=== PATIENT | female | born 1995 | race Two or more races ===

== ENCOUNTER 2017-02-26 06:44 | Emergency (ER) | payer SELFPAY ==
[~2017-02-26] VITALS: Ht 162.6 cm; Wt 99.8 kg
[~2017-02-26 06:44] MED LIST: HYDR-971 PO
[2017-02-26] MEDS ORDERED: ONDANSETRON ODT 4 MG TAB.RAPDIS. PO ONE (07:15)
--- NOTE | 2017-02-26 07:21 | PHYS DOC ---
Past Medical History Past Medical History: No Pertinent History Past Surgical History: No Surgical History Alcohol Use: Heavy Drug Use: Marijuana Adult General Chief Complaint Chief Complaint: PLEURISY HPI HPI This is a 21-year-old female who said to 3 days of what she states possibly a panic attack related symptoms. She does not claim she has any history of panic attacks. She states she's had some mild chest discomfort, palpitations, and shortness of breath for the last 3 days with multiple episodes of vomiting as well. Patient takes control but no other medications. She states her last missed her period was approximately one and a half months ago. Upon my initial evaluation, the patient is speaking in complete sentences and in no significant distress. She denies any abdominal pain. She denies any problems with urination or vaginal bleeding. Review of Systems Review of Systems Constitutional: Denies fever or chills [] Eyes: Denies change in visual acuity, redness, or eye pain [] HENT: Denies nasal congestion or sore throat [] Respiratory: Denies cough, has shortness of breath [] Cardiovascular: No additional information not addressed in HPI [] GI: Denies abdominal pain, has nausea, has vomiting, denies bloody stools or diarrhea [] : Denies dysuria or hematuria [] Musculoskeletal: Denies back pain or joint pain [] Integument: Denies rash or skin lesions [] Neurologic: Denies headache, focal weakness or sensory changes [] Endocrine: Denies polyuria or polydipsia [] Current Medications Current Medications Current Medications Medications (Trade) Dose Ordered Sig/Silviano Start Time Stop Time Status Last Admin Dose Admin Ondansetron HCl (Zofran Odt) 4 mg 1X ONCE 02/26/17 07:15 02/26/17 07:16 DC 02/26/17 07:42 4 MG Allergies Allergies Allergies Coded Allergies Type Severity Reaction Last Updated Verified No Known Drug Allergies 06/03/16 No Physical Exam Physical Exam Constitutional: Well developed, well nourished, no acute distress, non-toxic appearance. [] HENT: Normocephalic, atraumatic, bilateral external ears normal, oropharynx moist, no oral exudates, nose normal. [] Eyes: PERRLA, EOMI, conjunctiva normal, no discharge. [] Neck: Normal range of motion, no tenderness, supple, no stridor. [] Cardiovascular:Heart rate tachycardic with regular rhythm, no murmur [] Lungs & Thorax: Bilateral breath sounds clear to auscultation [] Abdomen: Bowel sounds normal, soft, no tenderness, no masses, no pulsatile masses. [] Skin: Warm, dry, no erythema, no rash. [] Back: No tenderness, no CVA tenderness. [] Extremities: No tenderness, no cyanosis, no clubbing, ROM intact, no edema. [] Neurologic: Alert and oriented X 3, normal motor function, normal sensory function, no focal deficits noted. [] Psychologic: Affect normal, judgement normal, mood normal. [] Current Patient Data Vital Signs Vital Signs Date Time Temp Pulse Resp B/P Pulse Ox O2 Delivery O2 Flow Rate FiO2 02/26/17 07:19 98.3 88 14 124/60 99 Room Air 98.3 Lab Values Laboratory Tests Test 02/26/17 06:33 02/26/17 07:27 POC Urine HCG, Qualitative Hcg negative (Negative) White Blood Count 12.8x10^3/uL (4.0-11.0) H Red Blood Count 5.00x10^6/uL (3.50-5.40) Hemoglobin 14.0g/dL (12.0-15.5) Hematocrit 42.1% (36.0-47.0) Mean Corpuscular Volume 84fL (79-100) Mean Corpuscular Hemoglobin 28pg (25-35) Mean Corpuscular Hemoglobin Concent 33g/dL (31-37) Red Cell Distribution Width 13.6% (11.5-14.5) Platelet Count 383x10^3/uL (140-400) Neutrophils (%) (Auto) 72% (31-73) Lymphocytes (%) (Auto) 20% (24-48) L Monocytes (%) (Auto) 7% (0-9) Eosinophils (%) (Auto) 1% (0-3) Basophils (%) (Auto) 1% (0-3) Neutrophils # (Auto) 9.2x10^3uL (1.8-7.7) H Lymphocytes # (Auto) 2.5x10^3/uL (1.0-4.8) Monocytes # (Auto) 0.9x10^3/uL (0.0-1.1) Eosinophils # (Auto) 0.1x10^3/uL (0.0-0.7) Basophils # (Auto) 0.1x10^3/uL (0.0-0.2) Sodium Level 139mmol/L (136-145) Potassium Level 3.8mmol/L (3.5-5.1) Chloride Level 103mmol/L (98-107) Carbon Dioxide Level 26mmol/L (21-32) Anion Gap 10 (6-14) Blood Urea Nitrogen 15mg/dL (7-20) Creatinine 0.7mg/dL (0.6-1.0) Estimated GFR (Cockcroft-Gault) 105.6 Glucose Level 121mg/dL (70-99) H Calcium Level 9.1mg/dL (8.5-10.1) Laboratory Tests 02/26/17 07:27 Laboratory Tests 02/26/17 07:27 EKG EKG EKG as interpreted by me shows a sinus rhythm with rate 89 bpm. This is a normal EKG. There are no obvious ST findings to indicate ischemia. Intervals are normal Radiology/Procedures Radiology/Procedures One view of the chest as interpreted by me did not reveal an acute cardiopulmonary process. Course & Med Decision Making Course & Med Decision Making Pertinent Labs and Imaging studies reviewed. (See chart for details) This otherwise healthy 21-year-old female having subjective symptoms of palpitations and shortness of breath for the last several days. Laboratory workup will be obtained including EKG and chest x-ray. A urine test is pending at this time. PERC negative. Her EKG is unremarkable. Her laboratory workup was fairly unremarkable. She is a slightly elevated WBC count of 12.8 which is nonspecific. Her BMP is normal. Patient was observed in the department and states she feels comfortable discharge at this time. I counseled her that she is to follow closely with her primary care doctor next several days. A low-dose of Xanax to be taken at bedtime was given that she states her symptoms seemed to be before bed. I also counseled her on decreasing her alcohol intake. Return precautions were provided and acknowledged. Dragon Disclaimer Dragon Disclaimer This electronic medical record was generated, in whole or in part, using a voice recognition dictation system. Departure Departure Impression: Primary Impression: Anxiety Additional Impression: Palpitations Disposition: HOME, SELF-CARE Admitting Physician: Other Condition: STABLE Referrals: NO PCP (PCP) Patient Instructions: Palpitations, [id number] Additional Instructions: Please follow up with your primary doctor in the next 2-3 days for your symptoms. Return to the ER if you develop any worsening of your symptoms. Take xanax only as needed at night to help you rest. Scripts Alprazolam (Xanax)0.25 Mg Tablet0.25 Mg PO QHS PRN ANXIETY / AGITATION #4 TAB Ref 0 Prov:MISSY KELSEY DO 02/26/17 Problem Qualifiers MISSY KELSEY DO Feb 26, 2017 07:21
[2017-02-26 07:39] LABS: BASO # 0.1 x10^3/uL (0.0-0.2); BASO % 1 % (0-3); EOS % 1 % (0-3); HEMATOCRIT 42.1 % (36.0-47.0); LYMPH # 2.5 x10^3/uL (1.0-4.8); LYMPH % 20 % (24-48); MEAN CORPUSCULAR HEMOGLOBIN 28 pg (25-35); MEAN CORPUSCULAR HGB CONC 33 g/dL (31-37); MEAN CORPUSCULAR VOLUME 84 fL (79-100); MONO % 7 % (0-9); NEUT % 72 % (31-73); PLATELET COUNT 383 x10^3/uL (140-400); RED CELL DISTRIBUTION WIDTH 13.6 % (11.5-14.5); WHITE BLOOD COUNT 12.8 x10^3/uL (4.0-11.0)
[2017-02-26 07:50] LABS: CALCIUM 9.1 mg/dL (8.5-10.1); CREATININE 0.7 mg/dL (0.6-1.0); GFR 105.6; POTASSIUM 3.8 mmol/L (3.5-5.1)
--- NOTE | 2017-02-26 07:58 | RAD ---
Portable chest, 02/26/2017: History: Chest pain The heart size and pulmonary vascularity are normal. The lungs are clear. There is no evidence of pleural fluid. IMPRESSION: No acute cardiopulmonary abnormality is detected.
[2017-02-26 08:00] VITALS: BP 119/68
[2017-02-26] MEDS ORDERED: ALPR0.25 PO (08:14)
--- NOTE | 2017-02-26 11:11 | EKG ---
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
== END 2017-02-26 08:16 | disposition home or self-care (01) ==
LOC: ER 06:44
DX: R00.2 Palpitations (principal); F41.9 Anxiety disorder, unspecified; R11.10 Vomiting, unspecified; F12.10 Cannabis abuse, uncomplicated
CPT/HCPCS: 36415; 71010; 80048; 84703; 85027; 93005; 99285; Q0162; 81025

== ENCOUNTER 2017-06-28 17:59 | Emergency (ER) | payer SELFPAY ==
[~2017-06-28 17:59] MED LIST changes: +ALPR0.25 PO
[2017-06-28] MEDS ORDERED: IV NORMAL SALINE 1000ML BAG 1,000 ML IV SCH (18:43)
[2017-06-28] MEDS ORDERED: ASPIRIN CHEWABLE 81 MG TABLET. PO ONE (18:45)
--- NOTE | 2017-06-28 18:47 | PHYS DOC ---
Past Medical History Past Medical History: No Pertinent History, Anxiety Additional Past Medical Histor: panic attacks Past Surgical History: No Surgical History Alcohol Use: Heavy Drug Use: Marijuana Adult General Chief Complaint Chief Complaint: CHEST PAIN HPI HPI Patient is a 22 year old female who presents with complaint of left-sided chest pain. Patient states her symptoms are approximately half an hour prior to arrival. Patient states that her symptoms came on at rest while she was driving. Patient states that the pain feels like pressure in her chest radiates to her left shoulder. Patient states that she has been having pain off and on in her left shoulder and left upper extremity for several weeks. Patient denies any known injury resulting in her symptoms. The patient currently rates her pain as 5 out of 10. Patient states that her pain was worse upon onset but has improved spontaneously. Patient denies any associated shortness of breath, fever , or nausea. Patient has not taken any medications to help with symptoms. Patient states she has history of anxiety but does not take any medications and denies any other health problems. Review of Systems Review of Systems Constitutional: Denies fever or chills [] Eyes: Denies change in visual acuity, redness, or eye pain [] HENT: Denies nasal congestion or sore throat [] Respiratory: Denies cough or shortness of breath [] Cardiovascular: Chest pain, denies edema [] GI: Denies abdominal pain, nausea, vomiting, bloody stools or diarrhea [] : Denies dysuria or hematuria [] Musculoskeletal: Left shoulder and arm pain [] Integument: Denies rash or skin lesions [] Neurologic: Denies headache, focal weakness or sensory changes [] Current Medications Current Medications Current Medications Medications (Trade) Dose Ordered Sig/Silviano Start Time Stop Time Status Last Admin Dose Admin Aspirin (Children'S Aspirin) 324 mg 1X ONCE 06/28/17 18:45 06/28/17 18:46 DC 06/28/17 19:18 324 MG Sodium Chloride 1,000 ml @ 1,000 mls/hr Q1H 06/28/17 18:43 06/28/17 19:42 DC 06/28/17 19:20 1,000 MLS/HR Allergies Allergies Allergies Coded Allergies Type Severity Reaction Last Updated Verified No Known Drug Allergies 06/03/16 No Physical Exam Physical Exam Constitutional: Alert, obese, afebrile, no acute distress. [] HENT: Normocephalic, atraumatic, bilateral external ears normal, oropharynx moist, no oral exudates, nose normal. [] Eyes: PERRLA, EOMI, conjunctiva normal, no discharge. [] Neck: Normal range of motion, no tenderness, supple, no stridor. [] Cardiovascular:Heart rate regular rhythm, no murmur [] Lungs & Thorax: Bilateral breath sounds clear to auscultation [] Abdomen: Bowel sounds normal, soft, no tenderness, no masses, no pulsatile masses. [] Skin: Warm, dry, no erythema, no rash. [] Back: No tenderness, no CVA tenderness. [] Extremities: No tenderness, no cyanosis, no clubbing, ROM intact, no edema. [] Neurologic: Alert and oriented X 3, normal motor function, normal sensory function, no focal deficits noted. [] Current Patient Data Vital Signs Vital Signs Date Time Temp Pulse Resp B/P (MAP) Pulse Ox O2 Delivery O2 Flow Rate FiO2 06/28/17 18:16 98.8 91 18 119/68 (85) 98 Room Air 98.8 Lab Values Laboratory Tests Test 06/28/17 18:40 06/28/17 19:12 White Blood Count 9.2 x10^3/uL (4.0-11.0) Red Blood Count 4.75 x10^6/uL (3.50-5.40) Hemoglobin 13.5 g/dL (12.0-15.5) Hematocrit 39.7 % (36.0-47.0) Mean Corpuscular Volume 84 fL (79-100) Mean Corpuscular Hemoglobin 28 pg (25-35) Mean Corpuscular Hemoglobin Concent 34 g/dL (31-37) Red Cell Distribution Width 13.9 % (11.5-14.5) Platelet Count 369 x10^3/uL (140-400) Neutrophils (%) (Auto) 57 % (31-73) Lymphocytes (%) (Auto) 34 % (24-48) Monocytes (%) (Auto) 7 % (0-9) Eosinophils (%) (Auto) 1 % (0-3) Basophils (%) (Auto) 0 % (0-3) Neutrophils # (Auto) 5.3 x10^3uL (1.8-7.7) Lymphocytes # (Auto) 3.1 x10^3/uL (1.0-4.8) Monocytes # (Auto) 0.7 x10^3/uL (0.0-1.1) Eosinophils # (Auto) 0.1 x10^3/uL (0.0-0.7) Basophils # (Auto) 0.0 x10^3/uL (0.0-0.2) D-Dimer (Esther) < 0.27 ug/mlFEU Sodium Level 139 mmol/L (136-145) Potassium Level 3.5 mmol/L (3.5-5.1) Chloride Level 104 mmol/L (98-107) Carbon Dioxide Level 25 mmol/L (21-32) Anion Gap 10 (6-14) Blood Urea Nitrogen 10 mg/dL (7-20) Creatinine 0.7 mg/dL (0.6-1.0) Estimated GFR (Cockcroft-Gault) 104.6 Glucose Level 119 mg/dL (70-99) H Calcium Level 9.3 mg/dL (8.5-10.1) Magnesium Level 1.7 mg/dL (1.8-2.4) L Total Bilirubin 0.3 mg/dL (0.2-1.0) Direct Bilirubin < 0.1 mg/dL (0.0-0.2) Aspartate Amino Transferase (AST) 20 U/L (15-37) Alanine Aminotransferase (ALT) 30 U/L (14-59) Alkaline Phosphatase 75 U/L (46-116) Total Protein 7.4 g/dL (6.4-8.2) Albumin 3.6 g/dL (3.4-5.0) Urine Collection Type Unknown Urine Color Yellow Urine Clarity Clear Urine pH 6.5 Urine Specific [place] 1.025 Urine Protein Negative mg/dL (NEG-TRACE) Urine Glucose (UA) Negative mg/dL (NEG) Urine Ketones (Stick) Negative mg/dL (NEG) Urine Blood Negative (NEG) Urine Nitrite Negative (NEG) Urine Bilirubin Negative (NEG) Urine Urobilinogen Dipstick 0.2 mg/dL (0.2 mg/dL) Urine Leukocyte Esterase Negative (NEG) Urine RBC 0 /HPF (0-2) Urine WBC 1-4 /HPF (0-4) Urine Squamous Epithelial Cells Many /LPF Urine Bacteria Moderate /HPF (0-FEW) Urine Mucus Marked /LPF Urine Test Negative (NEG) Urine Opiates Screen Neg (NEG) Urine Methadone Screen Neg (NEG) Urine Barbiturates Neg (NEG) Urine Phencyclidine Screen Neg (NEG) Urine Amphetamine/Methamphetamine Neg (NEG) Urine Benzodiazepines Screen Neg (NEG) Urine Cocaine Screen Neg (NEG) Urine Cannabinoids Screen Neg (NEG) Urine Ethyl Alcohol Neg (NEG) Laboratory Tests 06/28/17 18:40 Laboratory Tests 06/28/17 18:40 EKG EKG Interpreted by me: Heart rate 85, sinus rhythm, normal intervals, normal axis, no acute ST/T-wave abnormalities present [] Radiology/Procedures Radiology/Procedures One view AP chest x-ray interpreted by me: No infiltrate, no effusions, normal cardiac silhouette 2 view left humerus x-ray interpreted by me: No fractures, normal alignment, no masses or soft tissue abnormalities present [] Course & Med Decision Making Course & Med Decision Making Pertinent Labs and Imaging studies reviewed. (See chart for details) Patient was given aspirin and IV fluids in the emergency department. The patient 's lab work was unremarkable for any acute cardiopulmonary pathology. The patient has no risk factors for coronary artery disease. The patient's symptoms are likely due to musculoskeletal pain, and I suspect that the patient has both a GI component and possible anxiety disorder contributing to symptoms. The patient will be started on Naprosyn and Flexeril for treatment of musculoskeletal pain. Also recommended use of Tums as needed for heartburn symptoms and recommended use of Pepcid daily to reduce stomach acid. Patient will be referred to Dr. Jordan in 2-3 days for reevaluation. I also recommended that the patient follow-up with her primary doctor in 3-5 days. Return precautions to the emergency department were given. Patient voiced understanding and in agreement with treatment plan. Dragon Disclaimer Dragon Disclaimer This electronic medical record was generated, in whole or in part, using a voice recognition dictation system. Departure Departure Impression: Primary Impression: Atypical chest pain Additional Impression: Pain of left upper extremity Disposition: HOME, SELF-CARE Condition: IMPROVED Referrals: NO PCP (PCP) DAYANARA JORDAN MD Patient Instructions: Chest Pain (Nonspecific), Shoulder Pain Additional Instructions: Follow-up with Dr. Jordan in 2-3 days for continued outpatient cardiology follow-up. Follow-up with your primary doctor in 3-5 days for reevaluation if symptoms do not improve. Return to emergency department for any worsening symptoms. Scripts Naproxen (NAPROSYN) 500 Mg Tablet 1 TAB PO BID, #20 TAB 0 Refills Prov: CELESTE VILLALTA MD 06/28/17 Cyclobenzaprine Hcl (CYCLOBENZAPRINE HCL) 10 Mg Tablet 1 TAB PO QHS Y for MUSCLE PAIN, #30 TAB Prov: CELESTE VILLALTA MD 06/28/17 Problem Qualifiers CELESTE VILLALTA MD Jun 28, 2017 18:47
[2017-06-28 19:15] LABS: BASO % 0 % (0-3); EOS % 1 % (0-3); HEMATOCRIT 39.7 % (36.0-47.0); HEMOGLOBIN 13.5 g/dL (12.0-15.5); LYMPH # 3.1 x10^3/uL (1.0-4.8); LYMPH % 34 % (24-48); MEAN CORPUSCULAR HEMOGLOBIN 28 pg (25-35); MEAN CORPUSCULAR HGB CONC 34 g/dL (31-37); MEAN CORPUSCULAR VOLUME 84 fL (79-100); MONO % 7 % (0-9); NEUT % 57 % (31-73); PLATELET COUNT 369 x10^3/uL (140-400); RED BLOOD COUNT 4.75 x10^6/uL (3.50-5.40); RED CELL DISTRIBUTION WIDTH 13.9 % (11.5-14.5); WHITE BLOOD COUNT 9.2 x10^3/uL (4.0-11.0)
[2017-06-28 19:21] LABS: BILIRUBIN,URINE NEGATIVE (NEG); GLUCOSE,URINE NEGATIVE (NEG); NITRITE,URINE NEGATIVE (NEG); PH,URINE 6.5; PROTEIN,URINE NEGATIVE (NEG-TRACE); UROBILINOGEN,URINE 0.2 mg/dL (0.2 mg/dL)
[2017-06-28 19:27] LABS: ANION GAP 10 (6-14); BLOOD UREA NITROGEN 10 mg/dL (7-20); CALCIUM 9.3 mg/dL (8.5-10.1); CARBON DIOXIDE 25 mmol/L (21-32); CHLORIDE 104 mmol/L (98-107); CREATININE 0.7 mg/dL (0.6-1.0); GFR 104.6; GLUCOSE 119 mg/dL (70-99); POTASSIUM 3.5 mmol/L (3.5-5.1); SODIUM 139 mmol/L (136-145)
[2017-06-28 19:29] LABS: BACTERIA,URINE MODERATE /HPF (0-FEW); RBC,URINE 0 /HPF (0-2); SQUAMOUS EPITHELIAL CELL,UR MANY /LPF
[2017-06-28 19:33] LABS: ALBUMIN 3.6 g/dL (3.4-5.0); ALK PHOS 75 U/L (46-116); ALT (SGPT) 30 U/L (14-59); AST (SGOT) 20 U/L (15-37); DIRECT BILIRUBIN < 0.1 mg/dL (0.0-0.2); MAGNESIUM 1.7 mg/dL (1.8-2.4); TOTAL BILIRUBIN 0.3 mg/dL (0.2-1.0); TOTAL PROTEIN 7.4 g/dL (6.4-8.2)
[2017-06-28 19:34] LABS: BARBITURATES NEG (NEG); BENZODIAZEPINES NEG (NEG); CANNABINOIDS NEG (NEG); COCAINE NEG (NEG); METHADONE NEG (NEG); OPIATES NEG (NEG); PHENCYCLIDINE NEG (NEG)
[2017-06-28 20:00] LABS: NEG OBC UR NEG; POS OBC UR POS
[2017-06-28] MEDS ORDERED: NAPR500T PO (20:38)
[2017-06-28] MEDS ORDERED: CYCL10TA2 PO (20:38)
[2017-06-28 20:43] VITALS: BP 122/55
--- NOTE | 2017-06-29 08:03 | RAD ---
AP chest radiograph 06/28/2017 Clinical indication: Left-sided chest pain and left shoulder pain. No focal injury. Comparison: Chest radiograph February 26, 2017. Findings: Hypoinflation of both lungs. Cardiac and mediastinal silhouettes are within normal limits. No pleural effusion, pneumothorax or focal consolidation. Impression: Mild hypoinflation of both lungs with no acute cardiopulmonary abnormality.
--- NOTE | 2017-06-29 08:55 | RAD ---
Left humerus radiograph 2 views 06/28/2017 Clinical indication: Left-sided chest and shoulder pain with no known injury. Comparison: None. Findings: No acute fracture or traumatic malalignment of the left humeral diaphysis. Visualized soft tissues are grossly unremarkable. Impression: No acute osseous abnormality of the left humeral diaphysis.
--- NOTE | 2017-06-29 13:38 | EKG ---
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
== END 2017-06-28 20:43 | disposition home or self-care (01) ==
LOC: ER 17:59
DX: R07.89 Other chest pain (principal); M25.512 Pain in left shoulder; M79.622 Pain in left upper arm
CPT/HCPCS: 36415; 71010; 73060; 80048; 80076; 80307; 81001; 81025; 83735; 85025; 85379; 87086; 93005; 99284; J7030; G0479

== ENCOUNTER 2017-12-05 11:00 | Emergency (ER) | payer SELFPAY ==
[2017-12-05 11:45] LABS: URINE HCG POC HCG NEGATIVE (Negative)
[2017-12-05] MEDS: FAMOTIDINE 20 MG TABLET. PO ×2 (12:10)
[2017-12-05] MEDS: IBUPROFEN 800 MG TABLET. PO ×2 (12:10)
[2017-12-05 12:28] LABS: BILIRUBIN,URINE NEGATIVE (NEG); CLARITY,URINE CLEAR; COLOR,URINE YELLOW; GLUCOSE,URINE NEGATIVE (NEG); NITRITE,URINE NEGATIVE (NEG); PH,URINE 6.5; PROTEIN,URINE NEGATIVE (NEG-TRACE); UROBILINOGEN,URINE 0.2 mg/dL (0.2 mg/dL)
[2017-12-05 12:37] LABS: BACTERIA,URINE MOD /HPF (0-FEW); RBC,URINE 0 /HPF (0-2); SQUAMOUS EPITHELIAL CELL,UR MOD /LPF; WBC,URINE 0 /HPF (0-4)
== END 2017-12-05 13:10 | disposition home or self-care (01) ==
LOC: ER 11:00
DX: K21.9 Gastro-esophageal reflux disease without esophagitis (principal); F41.0 Panic disorder [episodic paroxysmal anxiety]; Z87.891 Personal history of nicotine dependence
CPT/HCPCS: 71046; 81001; 81025; 93005; 99285-25

== ENCOUNTER 2017-12-19 02:42 | Emergency (ER) | payer SELFPAY ==
[2017-12-19 03:14] LABS: URINE HCG POC HCG NEGATIVE (Negative)
[2017-12-19 04:00] LABS: BILIRUBIN,URINE NEGATIVE (NEG); CLARITY,URINE CLEAR; COLOR,URINE YELLOW; GLUCOSE,URINE NEGATIVE (NEG); NITRITE,URINE NEGATIVE (NEG); PH,URINE 6.5; PROTEIN,URINE NEGATIVE (NEG-TRACE); UROBILINOGEN,URINE 0.2 mg/dL (0.2 mg/dL)
[2017-12-19 04:05] LABS: BACTERIA,URINE MODERATE /HPF (0-FEW); RBC,URINE 0 /HPF (0-2); SQUAMOUS EPITHELIAL CELL,UR MOD /LPF
[2017-12-19] MEDS: ONDANSETRON PF 4 MG/2 ML VIAL. IV ×2 (04:34)
[2017-12-19] MEDS: fentaNYL PF VIAL 100 MCG/2 ML VIAL IV ×2 (04:36)
[2017-12-19 05:34] LABS: ANION GAP 10 (6-14); BLOOD UREA NITROGEN 14 mg/dL (7-20); BUN/CREATININE RATIO 23 (6-20); CALCIUM 8.9 mg/dL (8.5-10.1); CARBON DIOXIDE 24 mmol/L (21-32); CHLORIDE 105 mmol/L (98-107); CREATININE 0.6 mg/dL (0.6-1.0); GLUCOSE 95 mg/dL (70-99); POTASSIUM 3.7 mmol/L (3.5-5.1); SODIUM 139 mmol/L (136-145)
[2017-12-19 05:40] LABS: ALBUMIN 3.4 g/dL (3.4-5.0); ALBUMIN/GLOBULIN RATIO 0.8 (1.0-1.7); ALK PHOS 77 U/L (46-116); ALT (SGPT) 19 U/L (14-59); AST (SGOT) 13 U/L (15-37); LIPASE 93 U/L (73-393); NEG OBC SER NEG; POS OBC SER POS; PREG TEST PT QUAL NEGATIVE (NEG); TOTAL BILIRUBIN 0.1 mg/dL (0.2-1.0); TOTAL PROTEIN 7.5 g/dL (6.4-8.2)
[2017-12-19 06:15] LABS: ADD MAN DIFF? NO
[2017-12-19 06:18] LABS: BASO # 0.1 x10^3/uL (0.0-0.2); BASO % 1 % (0-3); EOS # 0.1 x10^3/uL (0.0-0.7); EOS % 1 % (0-3); HEMATOCRIT 41.1 % (36.0-47.0); LYMPH # 3.7 x10^3/uL (1.0-4.8); LYMPH % 32 % (24-48); MEAN CORPUSCULAR HEMOGLOBIN 28 pg (25-35); MEAN CORPUSCULAR HGB CONC 34 g/dL (31-37); MEAN CORPUSCULAR VOLUME 83 fL (79-100); MONO # 0.9 x10^3/uL (0.0-1.1); MONO % 8 % (0-9); NEUT # 6.9 x10^3uL (1.8-7.7); NEUT % 59 % (31-73); PLATELET COUNT 361 x10^3/uL (140-400); RED BLOOD COUNT 4.96 x10^6/uL (3.50-5.40); RED CELL DISTRIBUTION WIDTH 14.3 % (11.5-14.5); WHITE BLOOD COUNT 11.6 x10^3/uL (4.0-11.0)
== END 2017-12-19 06:43 | disposition home or self-care (01) ==
LOC: ER 02:42
DX: R10.11 Right upper quadrant pain (principal); R11.0 Nausea; R63.0 Anorexia; F41.0 Panic disorder [episodic paroxysmal anxiety]; Z68.36 Body mass index [BMI] 36.0-36.9, adult
CPT/HCPCS: 36415; 76705; 80053; 81001; 81025; 83690; 84703; 85025; 87086; 96374; 96375; 99285-25; J2405; J3010

== ENCOUNTER 2018-01-11 22:38 | Emergency (ER) | payer SELFPAY | END 2018-01-12 02:02 | disposition home or self-care (01) | LOC: ER 01-12 02:02 | DX: R09.89 Other specified symptoms and signs involving the circulatory and respiratory systems (principal); F41.0 Panic disorder [episodic paroxysmal anxiety] | CPT/HCPCS: 70360; 99284 ==

== ENCOUNTER 2018-04-15 22:28 | Emergency (ER) | payer SELFPAY ==
[2018-04-15] MEDS: LIDO:MAALOX 1:1 20 ML SINGLE DOSE. PO (23:37)
[2018-04-15 23:39] LABS: ADD MAN DIFF? NO
[2018-04-15 23:41] LABS: URINE HCG POC HCG NEGATIVE (Negative)
[2018-04-15 23:45] LABS: BASO # 0.2 x10^3/uL (0.0-0.2); BASO % 1 % (0-3); BILIRUBIN,URINE NEGATIVE (NEG); CLARITY,URINE CLEAR; COLOR,URINE YELLOW; EOS # 0.2 x10^3/uL (0.0-0.7); EOS % 1 % (0-3); GLUCOSE,URINE NEGATIVE (NEG); HEMATOCRIT 41.6 % (36.0-47.0); HEMOGLOBIN 14.6 g/dL (12.0-15.5); LYMPH % 35 % (24-48); MEAN CORPUSCULAR HEMOGLOBIN 30 pg (25-35); MEAN CORPUSCULAR HGB CONC 35 g/dL (31-37); MEAN CORPUSCULAR VOLUME 85 fL (79-100); MONO % 7 % (0-9); NEUT # 7.8 x10^3uL (1.8-7.7); NEUT % 55 % (31-73); NITRITE,URINE NEGATIVE (NEG); PROTEIN,URINE NEGATIVE (NEG-TRACE); RED BLOOD COUNT 4.87 x10^6/uL (3.50-5.40); RED CELL DISTRIBUTION WIDTH 13.7 % (11.5-14.5); UROBILINOGEN,URINE 0.2 mg/dL (0.2 mg/dL); WHITE BLOOD COUNT 14.1 x10^3/uL (4.0-11.0)
[2018-04-15 23:46] LABS: PLATELET COUNT 349 x10^3/uL (140-400)
[2018-04-15 23:55] LABS: ANION GAP 13 (6-14); BLOOD UREA NITROGEN 11 mg/dL (7-20); BUN/CREATININE RATIO 14 (6-20); CALCIUM 9.6 mg/dL (8.5-10.1); CARBON DIOXIDE 25 mmol/L (21-32); CHLORIDE 102 mmol/L (98-107); CREATININE 0.8 mg/dL (0.6-1.0); GFR 89.7; GLUCOSE 96 mg/dL (70-99); POTASSIUM 4.2 mmol/L (3.5-5.1); SODIUM 140 mmol/L (136-145)
[2018-04-15 23:59] LABS: BACTERIA,URINE MANY /HPF (0-FEW); RBC,URINE 0 /HPF (0-2); SQUAMOUS EPITHELIAL CELL,UR FEW /LPF
[2018-04-16 00:03] LABS: TROPONINI < 0.017 ng/mL (0.000-0.055)
[2018-04-16 00:08] LABS: ALBUMIN 4.1 g/dL (3.4-5.0); ALBUMIN/GLOBULIN RATIO 1.1 (1.0-1.7); ALK PHOS 97 U/L (46-116); ALT (SGPT) 24 U/L (14-59); AST (SGOT) 16 U/L (15-37); LIPASE 109 U/L (73-393); TOTAL BILIRUBIN 0.3 mg/dL (0.2-1.0); TOTAL PROTEIN 7.7 g/dL (6.4-8.2)
[2018-04-16] MEDS: cefTRIAXone IV Push 1 GM VIAL. IVP (04:34)
[2018-04-16] MEDS: KETOROLAC 15 MG/ML VIAL. IV (04:35)
[2018-04-17] MEDS ORDERED: cefTRIAXone IV Push 1 GM VIAL. IVP (06:00)
== END 2018-04-16 05:59 | disposition home or self-care (01) ==
LOC: ER 04-16 05:59
DX: R07.81 Pleurodynia (principal); N39.0 Urinary tract infection, site not specified; M25.512 Pain in left shoulder; K21.9 Gastro-esophageal reflux disease without esophagitis; G43.909 Migraine, unspecified, not intractable, without status migrainosus; F41.9 Anxiety disorder, unspecified
CPT/HCPCS: 36415; 71046; 74018; 80053; 81001; 81025; 83690; 84484; 85025; 87086; 93005; 96374; 96375; 99285-25; J0696; J1885

== ENCOUNTER 2019-05-06 23:53 | Emergency (ER) | payer SELFPAY ==
[~2019-05-06] VITALS: Ht 160 cm; Wt 102.1 kg
[~2019-05-06 23:53] MED LIST changes: +CEPH-264 PO; +CYCL10TA2 PO; +HYDR-3164 PO; -HYDR-971 PO; +IBUP200T44 PO; +NAPR-683 PO; +OMEP20CA10 PO; +ONDA4TAB7 PO
[2019-05-07 01:00] LABS: BASO % 0 % (0-3); EOS # 0.1 x10^3/uL (0.0-0.7); EOS % 1 % (0-3); HEMATOCRIT 37.3 % (36.0-47.0); HEMOGLOBIN 12.7 g/dL (12.0-15.5); LYMPH # 2.9 x10^3/uL (1.0-4.8); LYMPH % 28 % (24-48); MEAN CORPUSCULAR HEMOGLOBIN 29 pg (25-35); MEAN CORPUSCULAR HGB CONC 34 g/dL (31-37); MEAN CORPUSCULAR VOLUME 85 fL (79-100); MONO # 0.9 x10^3/uL (0.0-1.1); MONO % 8 % (0-9); NEUT # 6.6 x10^3uL (1.8-7.7); NEUT % 63 % (31-73); PLATELET COUNT 301 x10^3/uL (140-400); RED BLOOD COUNT 4.37 x10^6/uL (3.50-5.40); RED CELL DISTRIBUTION WIDTH 13.5 % (11.5-14.5); WHITE BLOOD COUNT 10.6 x10^3/uL (4.0-11.0)
[2019-05-07 01:02] LABS: BILIRUBIN,URINE NEGATIVE (NEG); CLARITY,URINE CLEAR; COLOR,URINE YELLOW; NITRITE,URINE NEGATIVE (NEG); PH,URINE 6.5; PROTEIN,URINE NEGATIVE (NEG-TRACE); UROBILINOGEN,URINE 0.2 mg/dL (0.2 mg/dL)
[2019-05-07 01:11] LABS: CALCIUM 9.1 mg/dL (8.5-10.1); CREATININE 0.6 mg/dL (0.6-1.0); GFR 122.8; POTASSIUM 3.7 mmol/L (3.5-5.1)
[2019-05-07 01:12] LABS: SQUAMOUS EPITHELIAL CELL,UR MOD /LPF
[2019-05-07 01:13] LABS: AMORPHOUS SEDIMENT,UR PRESENT /HPF; BACTERIA,URINE MANY /HPF (0-FEW); WBC,URINE 20-40 /HPF (0-4)
[2019-05-07 01:18] LABS: ALBUMIN 3.1 g/dL (3.4-5.0); ALBUMIN/GLOBULIN RATIO 0.8 (1.0-1.7); TOTAL BILIRUBIN 0.1 mg/dL (0.2-1.0); TOTAL PROTEIN 7.1 g/dL (6.4-8.2)
[2019-05-07] MEDS ORDERED: CEPHALEXIN 250 MG CAPSULE. PO ONE (01:45)
[2019-05-07 02:34] VITALS: BP 114/68
--- NOTE | 2019-05-07 02:44 | RAD ---
CLINICAL HISTORY: Right upper quadrant ultrasound COMPARISON: None available. TECHNIQUE: Limited ultrasound examination of the right upper quadrant of the abdomen was performed FINDINGS: Liver: The liver measures 15.6 cm in length in the right mid clavicular line. Hepatic echogenicity is normal and the margin is smooth. There is no focal abnormality of the liver. Portal and hepatic venous flow is confirmed with normal waveforms. Gallbladder/Biliary: The gallbladder is normal in appearance without evidence for cholelithiasis. There is no wall thickening or pericholecystic fluid. There is no pain with direct transducer pressure over the gallbladder.The common bile duct measures 0.3 cm. The right kidney measures 13.2 cm in bipolar length. No focal renal lesion. No hydronephrosis or hydroureter. Pancreas is obscured by overlying bowel gas. There is no free fluid in the subhepatic space. IMPRESSION: Essentially normal sonographic survey of the right upper quadrant. Electronically signed by: Jona Reid MD (05/07/2019 2:40 AM) [facility]
[2019-05-07] MEDS ORDERED: CEPH500C PO (03:14)
--- NOTE | 2019-05-07 04:07 | PHYS DOC ---
Past Medical History Past Medical History: Anxiety, GERD, Migraines Additional Past Medical Histor: panic attacks Past Surgical History: No Surgical History Alcohol Use: None Drug Use: None Adult General Chief Complaint Chief Complaint: ABDOMINAL PAIN IN HPI HPI Patient is a 24 year old female presents with abdominal pain �2 days right upper quadrant radiates to the epigastrium and towards the back she says it's worse when she tries to eat something it sharp it is not worse with breathing she is frustrated because she is so she does not feel that she can take anything for the pain. Really no dysuria no vomiting no fever no lower abdominal pain really no mid abdominal pain either the pain is really she points just underneath her rib cage on the right Patient is not having any vaginal bleeding Quick bedside ultrasound performed by me did show positive movement and positive heart rate in the 130 range Formal ultrasound of the right upper quadrant was totally normal labs were normal except for possible UTI. I reevaluated the patient twice in the emergency room the abdominal exam was unchanged there was persistent mild tenderness in the right upper quadrant just underneath the rib cage there was no tenderness anywhere near the umbilicus I considered the possibility of atypical appendicitis however given the location of her tenderness really did not feel it was appropriate to image or radiate her at this time for that diagnosis I thought it was pretty unlikely based on her abdominal examination. We did instruct her to come back in 24 hours should there be any migraine pain worsening pain fever or unable to eat or drink or any other new symptoms or concerns. Elbow x-ray given for possible UTI also recommended that she follow up with her TILE POWER SHEAR OPERATOR next few days for reevaluation. Review of Systems Review of Systems Constitutional: Denies fever or chills [] Eyes: Denies change in visual acuity, redness, or eye pain [] HENT: Denies nasal congestion or sore throat [] Respiratory: Denies cough or shortness of breath [] Cardiovascular: No additional information not addressed in HPI [] GI: Neurologic: Denies headache, focal weakness or sensory changes [] Endocrine: Denies polyuria or polydipsia [] All other systems were reviewed and found to be within normal limits, except as documented in this note. Current Medications Current Medications Current Medications Medications (Trade) Dose Ordered Sig/Silviano Start Time Stop Time Status Last Admin Dose Admin Cephalexin HCl (Keflex) 500 mg 1X ONCE 05/07/19 01:45 05/07/19 01:46 DC 05/07/19 02:05 500 MG Allergies Allergies Allergies Coded Allergies Type Severity Reaction Last Updated Verified No Known Drug Allergies 06/03/16 No Physical Exam Physical Exam Constitutional: Well developed, well nourished, no acute distress, non-toxic appearance. [] HENT: Normocephalic, atraumatic, bilateral external ears normal, oropharynx moist, no oral exudates, nose normal. [] Eyes: PERRLA, EOMI, conjunctiva normal, no discharge. [] Neck: Normal range of motion, no tenderness, supple, no stridor. [] Cardiovascular:Heart rate regular rhythm, no murmur [] Lungs & Thorax: Bilateral breath sounds clear to auscultation [] Abdomen: Bowel sounds normal, soft, tenderness to palpation is located in the right upper quadrant just underneath the rib cage and also mild in the epigastrium there is no mid abdominal tenderness there is no lower quadrant tenderness Skin: Warm, dry, no erythema, no rash. [] Back: Mild CVA tenderness on the right Extremities: No tenderness, no cyanosis, no clubbing, ROM intact, no edema. [] Neurologic: Alert and oriented X 3, normal motor function, normal sensory fun ction, no focal deficits noted. [] Psychologic: Affect normal, judgement normal, mood normal. [] Current Patient Data Lab Values Laboratory Tests Test 05/07/19 00:01 05/07/19 00:10 05/07/19 00:51 Urine Collection Type Unknown Urine Color Yellow Urine Clarity Clear Urine pH 6.5 Urine Specific [place] 1.020 Urine Protein Negative mg/dL (NEG-TRACE) Urine Glucose (UA) Negative mg/dL (NEG) Urine Ketones (Stick) Negative mg/dL (NEG) Urine Blood Trace (NEG) Urine Nitrite Negative (NEG) Urine Bilirubin Negative (NEG) Urine Urobilinogen Dipstick 0.2 mg/dL (0.2 mg/dL) Urine Leukocyte Esterase Large (NEG) Urine RBC 1-2 /HPF (0-2) Urine WBC 20-40 /HPF (0-4) Urine Squamous Epithelial Cells Mod /LPF Urine Amorphous Sediment Present /HPF Urine Bacteria Many /HPF (0-FEW) Urine Mucus Mod /LPF POC Urine HCG, Qualitative Hcg positive (Negative) White Blood Count 10.6 x10^3/uL (4.0-11.0) Red Blood Count 4.37 x10^6/uL (3.50-5.40) Hemoglobin 12.7 g/dL (12.0-15.5) Hematocrit 37.3 % (36.0-47.0) Mean Corpuscular Volume 85 fL (79-100) Mean Corpuscular Hemoglobin 29 pg (25-35) Mean Corpuscular Hemoglobin Concent 34 g/dL (31-37) Red Cell Distribution Width 13.5 % (11.5-14.5) Platelet Count 301 x10^3/uL (140-400) Neutrophils (%) (Auto) 63 % (31-73) Lymphocytes (%) (Auto) 28 % (24-48) Monocytes (%) (Auto) 8 % (0-9) Eosinophils (%) (Auto) 1 % (0-3) Basophils (%) (Auto) 0 % (0-3) Neutrophils # (Auto) 6.6 x10^3uL (1.8-7.7) Lymphocytes # (Auto) 2.9 x10^3/uL (1.0-4.8) Monocytes # (Auto) 0.9 x10^3/uL (0.0-1.1) Eosinophils # (Auto) 0.1 x10^3/uL (0.0-0.7) Basophils # (Auto) 0.0 x10^3/uL (0.0-0.2) Sodium Level 138 mmol/L (136-145) Potassium Level 3.7 mmol/L (3.5-5.1) Chloride Level 104 mmol/L (98-107) Carbon Dioxide Level 24 mmol/L (21-32) Anion Gap 10 (6-14) Blood Urea Nitrogen 6 mg/dL (7-20) L Creatinine 0.6 mg/dL (0.6-1.0) Estimated GFR (Cockcroft-Gault) 122.8 BUN/Creatinine Ratio 10 (6-20) Glucose Level 86 mg/dL (70-99) Calcium Level 9.1 mg/dL (8.5-10.1) Total Bilirubin 0.1 mg/dL (0.2-1.0) L Aspartate Amino Transferase (AST) 19 U/L (15-37) Alanine Aminotransferase (ALT) 25 U/L (14-59) Alkaline Phosphatase 45 U/L (46-116) L Total Protein 7.1 g/dL (6.4-8.2) Albumin 3.1 g/dL (3.4-5.0) L Albumin/Globulin Ratio 0.8 (1.0-1.7) L Lipase 134 U/L (73-393) Laboratory Tests 05/07/19 00:51 Laboratory Tests 05/07/19 00:51 EKG EKG [] Radiology/Procedures Radiology/Procedures [] Impressions: IMPRESSION: Essentially normal sonographic survey of the right upper quadrant. Electronically signed by: Jona Reid MD (05/07/2019 2:40 AM) [facility] [id number] Course & Med Decision Making Course & Med Decision Making Pertinent Labs and Imaging studies reviewed. (See chart for details) []See history of present illness for MDM Dragon Disclaimer Dragon Disclaimer This electronic medical record was generated, in whole or in part, using a voice recognition dictation system. Departure Departure Impression: Primary Impression: Urinary tract infection Disposition: 01 HOME, SELF-CARE Condition: STABLE Patient Instructions: Urinary Tract Infection, [id number] Additional Instructions: come back in 24 hours for increasing or migrating pain fever or unable to eat or drink. Scripts Cephalexin (CEPHALEXIN) 500 Mg Capsule 1 CAP PO QID, #40 CAP Prov: HENRIETTA SEXTON MD 05/07/19 HENRIETTA SEXTON MD May 07, 2019 04:07
== END 2019-05-07 03:20 | disposition home or self-care (01) ==
LOC: ER 05-07 00:29
DX: O23.42 Unspecified infection of urinary tract in pregnancy, second trimester (principal); O99.342 Other mental disorders complicating pregnancy, second trimester; F41.9 Anxiety disorder, unspecified; O99.612 Diseases of the digestive system complicating pregnancy, second trimester; K21.9 Gastro-esophageal reflux disease without esophagitis; G43.909 Migraine, unspecified, not intractable, without status migrainosus; R10.11 Right upper quadrant pain; M54.9 Dorsalgia, unspecified; Z3A.15 15 weeks gestation of pregnancy
CPT/HCPCS: 36415; 76705; 80053; 81001; 81025; 83690; 85025; 87086; 99285-25

== ENCOUNTER 2019-06-16 19:46 | Observation (INO) | payer SELFPAY ==
[~2019-06-16 19:46] MED LIST changes: +CEPH500C PO
[2019-06-16] MEDS ORDERED: IV RINGERS,LACTATED 1000ML 1,000 ML IV SCH (19:58)
[2019-06-16 20:21] LABS: BILIRUBIN,URINE NEGATIVE (NEG); CLARITY,URINE CLEAR; COLOR,URINE YELLOW; NITRITE,URINE NEGATIVE (NEG); PROTEIN,URINE NEGATIVE (NEG-TRACE); UROBILINOGEN,URINE 0.2 mg/dL (0.2 mg/dL)
[2019-06-16 20:22] LABS: BARBITURATES NEG (NEG); BENZODIAZEPINES NEG (NEG); CANNABINOIDS NEG (NEG); COCAINE NEG (NEG); METHADONE NEG (NEG); OPIATES NEG (NEG); PHENCYCLIDINE NEG (NEG)
[2019-06-16 20:27] LABS: AMPHETAMINE/METHAMPHETAMINE NEG (NEG)
[2019-06-16 20:32] LABS: BACTERIA,URINE MANY /HPF (0-FEW); RBC,URINE 0 /HPF (0-2); SQUAMOUS EPITHELIAL CELL,UR MANY /LPF; WBC,URINE OCC /HPF (0-4)
[2019-06-16] MEDS ORDERED: CEPH500C PO (21:17)
== END 2019-06-16 20:40 | disposition short-term general hospital (02) ==
LOC: 3 SO LND 19:46
PROVIDERS: ADMIT Specialist; ATTEND Specialist
DX: O46.92 Antepartum hemorrhage, unspecified, second trimester (principal); Z3A.21 21 weeks gestation of pregnancy
CPT/HCPCS: 80307; 81001; 87086; G0378; G0379

== ENCOUNTER 2019-06-16 20:45 | Emergency (ER) | payer SELFPAY ==
[~2019-06-16] VITALS: Ht 160 cm; Wt 104.3 kg
[2019-06-16 20:45] VITALS: BP 101/63
[2019-06-16] MEDS ORDERED: CEPH500C PO (21:17)
--- NOTE | 2019-06-16 21:18 | PHYS DOC ---
Past Medical History Past Medical History: Anxiety, GERD, Migraines Additional Past Medical Histor: panic attacks Past Surgical History: No Surgical History Alcohol Use: None Drug Use: None Adult General Chief Complaint Chief Complaint: ABSCESS HPI HPI Patient is a 24 year old female with history of anxiety, acid reflex, who presents to the ED today with an abscess on the right inner buttock that began a couple days ago. She is currently 20 weeks 1 para 0, was seen on the labor and delivery floor, heart tones were noted at 150. Patient denies any fever. She states the abscess opened up and was draining today. Review of Systems Review of Systems Constitutional: Denies fever or chills [] GI: . Denies abdominal pain, nausea, vomiting, bloody stools or diarrhea [] : Denies dysuria or hematuria [] Musculoskeletal: Denies back pain or joint pain [] Integument: Right inner buttock abscess Neurologic: Denies headache, focal weakness or sensory changes [] All other systems were reviewed and found to be within normal limits, except as documented in this note. Current Medications Current Medications Current Medications Medications (Trade) Dose Ordered Sig/Silviano Start Time Stop Time Status Last Admin Dose Admin Acetaminophen (Tylenol) 1,000 mg 1X ONCE 06/16/19 21:30 06/16/19 21:31 Ceftriaxone Sodium (Rocephin Im) 1 gm 1X ONCE 06/16/19 21:30 06/16/19 21:31 Allergies Allergies Allergies Coded Allergies Type Severity Reaction Last Updated Verified No Known Drug Allergies 06/03/16 No Physical Exam Physical Exam Constitutional: Well developed, well nourished, no acute distress, non-toxic appearance. [] Abdomen: Gravid abdomen. Bowel sounds normal, soft, no tenderness, no masses, no pulsatile masses. [] Skin: Right inner buttocks with an open wound roughly 1 x 1 cm draining trace amount of blood. There is no fluctuant to this region. Exam is slightly difficult because patient keeps squeezing her buttocks cheeks together and moving away. Back: No tenderness, no CVA tenderness. [] Extremities: No tenderness, no cyanosis, no clubbing, ROM intact, no edema. [] Neurologic: Alert and oriented X 3, normal motor function, normal sensory function, no focal deficits noted. [] Psychologic: Affect normal, judgement normal, mood normal. [] EKG EKG [] Radiology/Procedures Radiology/Procedures [] Course & Med Decision Making Course & Med Decision Making Pertinent Labs and Imaging studies reviewed. (See chart for details) This is a 24-year-old female patient currently 20 weeks coming from the labor and delivery floor with the heart tones of 150 presenting to the ED for right inner buttock abscess. The abscess has already opened up. Tetanus up-to-date. Discharge and cephalexin. Instructed to apply warm compresses to the area twice a day. Follow-up with the INSTRUCTIONAL TECHNOLOGY SPECIALIST in one week. Dragon Disclaimer Dragon Disclaimer This electronic medical record was generated, in whole or in part, using a voice recognition dictation system. Departure Departure Impression: Primary Impression: Abscess of buttock, right Disposition: 01 HOME, SELF-CARE Condition: STABLE Referrals: ULYSSES GONZALEZ MD (PCP) follow up with your doctor in 1 week Patient Instructions: Abscess, [id number] Additional Instructions: You were evaluated in the emergency room for an abscess on the right inner buttock. Take the prescribed medications as ordered. You can take Tylenol as needed for pain. Please apply warm compresses to this region 3 times a day. Follow-up with your INSTRUCTIONAL TECHNOLOGY SPECIALIST in one week. Scripts Cephalexin (CEPHALEXIN) 500 Mg Capsule 1 CAP PO QID, #40 CAP Prov: LINDSEY MAXWELL APRN 06/16/19 LINDSEY MAXWELL APRN Jun 16, 2019 21:18
[2019-06-16] MEDS ORDERED: LIDOCAINE 1% PF 2 ML VIAL. ONE (21:20)
[2019-06-16] MEDS ORDERED: cefTRIAXone IM 1 GM VIAL IM ONE (21:30)
[2019-06-16] MEDS ORDERED: ACETAMINOPHEN 500 MG TABLET PO ONE (21:30)
== END 2019-06-16 21:45 | disposition home or self-care (01) ==
LOC: ER 20:45
DX: O99.712 Diseases of the skin and subcutaneous tissue complicating pregnancy, second trimester (principal); L02.31 Cutaneous abscess of buttock; O99.612 Diseases of the digestive system complicating pregnancy, second trimester; K21.9 Gastro-esophageal reflux disease without esophagitis; O26.892 Other specified pregnancy related conditions, second trimester; G43.909 Migraine, unspecified, not intractable, without status migrainosus; Z3A.20 20 weeks gestation of pregnancy
CPT/HCPCS: 96372; 99283; J0696

== ENCOUNTER 2019-10-27 17:21 | Inpatient (IN) | payer SELFPAY ==
[~2019-10-27] VITALS: Ht 162.6 cm; Wt 127.9 kg
[~2019-10-27 17:21] MED LIST changes: +OMEP-229 PO; -OMEP20CA10 PO
[2019-10-27] MEDS ORDERED: IBUPROFEN 400 MG TABLET. PO PRN (17:45)
[2019-10-27] MEDS ORDERED: 0.9 % SODIUM CHLORIDE 10 ML DISP.SYRIN. IV PRN (17:45)
[2019-10-27] MEDS ORDERED: TERBUTALINE 1 MG/ML VIAL. SQ PRN (17:45)
[2019-10-27] MEDS ORDERED: LIDOCAINE 1% PF 30 ML VIAL. INJ PRN (17:45)
[2019-10-27] MEDS ORDERED: CITRIC ACID/SODIUM CITRATE 30 ML SOLUTION. PO PRN (17:45)
[2019-10-27] MEDS ORDERED: OXYTOCIN 30 UNIT/500 ML PREMIX 500 ML IV PRN (17:45)
[2019-10-27] MEDS ORDERED: fentaNYL PF VIAL 100 MCG/2 ML VIAL IV PRN (17:45)
[2019-10-27 17:57] VITALS: BP 116/78
[2019-10-27 18:05] VITALS: BP 116/78
[2019-10-27 18:18] LABS: BILIRUBIN,URINE NEGATIVE (NEG); CLARITY,URINE CLEAR; COLOR,URINE YELLOW; NITRITE,URINE NEGATIVE (NEG); PH,URINE 6.5; PROTEIN,URINE NEGATIVE (NEG-TRACE); UROBILINOGEN,URINE 0.2 mg/dL (0.2 mg/dL)
[2019-10-27 18:27] LABS: SQUAMOUS EPITHELIAL CELL,UR MOD /LPF
[2019-10-27 18:28] LABS: AMORPHOUS SEDIMENT,UR PRESENT /HPF; BACTERIA,URINE MODERATE /HPF (0-FEW); RBC,URINE OCC /HPF (0-2)
[2019-10-27] MEDS ORDERED: DINOPROSTONE 10 MG SUPP.VAG VG ONE (18:30)
[2019-10-27] MEDS: IV RINGERS,LACTATED 1000ML 1,000 ML IV PRN (18:33)
[2019-10-27 19:19] LABS: BASO % 0 % (0-3); EOS # 0.1 x10^3/uL (0.0-0.7); EOS % 1 % (0-3); HEMATOCRIT 33.7 % (36.0-47.0); HEMOGLOBIN 11.4 g/dL (12.0-15.5); LYMPH # 2.3 x10^3/uL (1.0-4.8); LYMPH % 24 % (24-48); MEAN CORPUSCULAR HEMOGLOBIN 28 pg (25-35); MEAN CORPUSCULAR HGB CONC 34 g/dL (31-37); MEAN CORPUSCULAR VOLUME 82 fL (79-100); MONO # 0.7 x10^3/uL (0.0-1.1); MONO % 7 % (0-9); NEUT # 6.6 x10^3/uL (1.8-7.7); NEUT % 68 % (31-73); PLATELET COUNT 277 x10^3/uL (140-400); RED CELL DISTRIBUTION WIDTH 15.1 % (11.5-14.5); WHITE BLOOD COUNT 9.7 x10^3/uL (4.0-11.0)
[2019-10-27] MEDS ORDERED: diphenhydrAMINE HCL 25 MG CAPSULE PO PRN (20:15)
[2019-10-27] MEDS ORDERED: ACETAMINOPHEN 500 MG TABLET PO PRN (20:15)
[2019-10-27] MEDS ORDERED: ONDANSETRON PF 4 MG/2 ML VIAL. IVP PRN (20:15)
[2019-10-28] MEDS ORDERED: OXYTOCIN 30 UNIT/500 ML PREMIX 500 ML IV PRN (06:30)
[2019-10-28] MEDS: IV RINGERS,LACTATED 1000ML 1,000 ML IV PRN ×2 (07:19→17:55)
--- NOTE | 2019-10-28 08:59 | PDOC1 ---
OB HISTORY AND PHYSICAL DATE OF ADMISSION DATE OF ADMISSION Date of Admission: Oct 27, 2019 at 17:21 CHIEF COMPLAINT EDC: Oct 29, 2019 EGA: 39.6 Reason for Admission: Induction of labor Problems: (1) HISTORY OF PRESENT Care: Yes Ultrasound: No ultrasounds Other Complications EDC: 10/29/19 LMP: 01/22/19 24y @ 39.6 by L=11 presents for indxn of labor. The pt presented last night where a cervidil was placed at ~1630. She did not make much change control specialist the night. Pit has been started and she is currently at 2U. She is not feeling ctxs at this time. PMH: Denies PSH: Denies Meds: PNV All: NKDA OBHx: G1 SH: no tob, no EtOH LAB SUMMARY Blood Type: A+ Ab Screen: Negative Rubella Screen: Immune RPR/VDRL: Negative HIV: Negative GBS: Negative HBsAG: Negative VTE PROPHYLAXIS ORDERED VTE Prophylaxis Devices: No VTE Pharmacological Prophylax: No OB - History Past Family/Social History * Past Medical, Surgical, Family and Obstetric Histories reviewed from chart. OB - Admission Exam Physical Exam Vitals: Vital Signs Date Time Temp Pulse Resp B/P (MAP) Pulse Ox O2 Delivery O2 Flow Rate FiO2 10/27/19 17:57 97.9 94 20 116/78 (91) 97.9 Vital Signs Date Time Temp Pulse Resp B/P (MAP) Pulse Ox O2 Delivery O2 Flow Rate FiO2 10/27/19 18:05 97.9 94 20 116/78 (91) 97.9 FHT: 13s +acels/no decels/mLTV [place]: quiet SVE: 1/Th/H HEENT: Normal Heart: Regular Rate Lungs: Clear Abdomen: Gravid Assessment/Plan Assessment/Plan A/P 24y @ 39.6 by L=11 1.) Indxn s/p cervidil, on Pit 2.) Fetus cat I FHT, vtx 3.) GBS neg 4.) Girl: Leni 5.) Cytology neg/HPV pos pap (repeat in a yr since younger than 25yo) Problem Qualifiers (1) : Weeks of gestation: 39 weeks Qualified Codes: Z3A.39 - 39 weeks gestation of GABBIE PATTERSON MD Oct 28, 2019 08:59
--- NOTE | 2019-10-28 11:27 | PDOC ---
OB Progress Note Notes Pt starting to feel mild ctx's. Discussed Ladi and latent/active labor Lab Laboratory Tests Test 10/27/19 17:45 10/27/19 19:00 Urine Collection Type Unknown Urine Color Yellow Urine Clarity Clear Urine pH 6.5 Urine Specific [place] 1.025 Urine Protein Negative mg/dL (NEG-TRACE) Urine Glucose (UA) Negative mg/dL (NEG) Urine Ketones (Stick) Negative mg/dL (NEG) Urine Blood Trace (NEG) Urine Nitrite Negative (NEG) Urine Bilirubin Negative (NEG) Urine Urobilinogen Dipstick 0.2 mg/dL (0.2 mg/dL) Urine Leukocyte Esterase Negative (NEG) Urine RBC Occ /HPF (0-2) Urine WBC 1-4 /HPF (0-4) Urine Squamous Epithelial Cells Mod /LPF Urine Amorphous Sediment Present /HPF Urine Bacteria Moderate /HPF (0-FEW) Urine Mucus Marked /LPF White Blood Count 9.7 x10^3/uL (4.0-11.0) Red Blood Count 4.10 x10^6/uL (3.50-5.40) Hemoglobin 11.4 g/dL (12.0-15.5) Hematocrit 33.7 % (36.0-47.0) Mean Corpuscular Volume 82 fL (79-100) Mean Corpuscular Hemoglobin 28 pg (25-35) Mean Corpuscular Hemoglobin Concent 34 g/dL (31-37) Red Cell Distribution Width 15.1 % (11.5-14.5) Platelet Count 277 x10^3/uL (140-400) Neutrophils (%) (Auto) 68 % (31-73) Lymphocytes (%) (Auto) 24 % (24-48) Monocytes (%) (Auto) 7 % (0-9) Eosinophils (%) (Auto) 1 % (0-3) Basophils (%) (Auto) 0 % (0-3) Neutrophils # (Auto) 6.6 x10^3/uL (1.8-7.7) Lymphocytes # (Auto) 2.3 x10^3/uL (1.0-4.8) Monocytes # (Auto) 0.7 x10^3/uL (0.0-1.1) Eosinophils # (Auto) 0.1 x10^3/uL (0.0-0.7) Basophils # (Auto) 0.0 x10^3/uL (0.0-0.2) Treponema pallidum Antibody Nonreactive (Nonreactive) Laboratory Tests Test 10/27/19 17:45 10/27/19 19:00 Urine Collection Type Unknown Urine Color Yellow Urine Clarity Clear Urine pH 6.5 Urine Specific [place] 1.025 Urine Protein Negative mg/dL (NEG-TRACE) Urine Glucose (UA) Negative mg/dL (NEG) Urine Ketones (Stick) Negative mg/dL (NEG) Urine Blood Trace (NEG) Urine Nitrite Negative (NEG) Urine Bilirubin Negative (NEG) Urine Urobilinogen Dipstick 0.2 mg/dL (0.2 mg/dL) Urine Leukocyte Esterase Negative (NEG) Urine RBC Occ /HPF (0-2) Urine WBC 1-4 /HPF (0-4) Urine Squamous Epithelial Cells Mod /LPF Urine Amorphous Sediment Present /HPF Urine Bacteria Moderate /HPF (0-FEW) Urine Mucus Marked /LPF White Blood Count 9.7 x10^3/uL (4.0-11.0) Red Blood Count 4.10 x10^6/uL (3.50-5.40) Hemoglobin 11.4 g/dL (12.0-15.5) Hematocrit 33.7 % (36.0-47.0) Mean Corpuscular Volume 82 fL (79-100) Mean Corpuscular Hemoglobin 28 pg (25-35) Mean Corpuscular Hemoglobin Concent 34 g/dL (31-37) Red Cell Distribution Width 15.1 % (11.5-14.5) Platelet Count 277 x10^3/uL (140-400) Neutrophils (%) (Auto) 68 % (31-73) Lymphocytes (%) (Auto) 24 % (24-48) Monocytes (%) (Auto) 7 % (0-9) Eosinophils (%) (Auto) 1 % (0-3) Basophils (%) (Auto) 0 % (0-3) Neutrophils # (Auto) 6.6 x10^3/uL (1.8-7.7) Lymphocytes # (Auto) 2.3 x10^3/uL (1.0-4.8) Monocytes # (Auto) 0.7 x10^3/uL (0.0-1.1) Eosinophils # (Auto) 0.1 x10^3/uL (0.0-0.7) Basophils # (Auto) 0.0 x10^3/uL (0.0-0.2) Treponema pallidum Antibody Nonreactive (Nonreactive) Medications Current Medications Sodium Chloride (Normal Saline Flush) 3 ml QSHIFT PRN IV AFTER MEDS AND BLOOD DRAWS; Start 10/27/19 at 17:45 Ringer's Solution 1,000 ml @ 125 mls/hr Q8H PRN IV PER PROTOCOL Last administered on 10/28/19at 07:19; Start 10/27/19 at 17:45 Fentanyl Citrate (Fentanyl 2ml Vial) 100 mcg PRN Q30MIN PRN IV Severe pain; Start 10/27/19 at 17:45 Citric Acid/ Sodium Citrate (Bicitra) 30 ml 1X PRN PRN PO DYSPEPSIA; Start 10/27/19 at 17:45; Stop 10/29/19 at 17:44 Terbutaline Sulfate (Brethine) 0.25 mg 1X PRN PRN SQ SEE COMMENTS; Start 10/27/19 at 17:45; Stop 10/28/19 at 17:44 Lidocaine HCl (Xylocaine 1% Pf 30ml Vial) 30 ml 1X PRN PRN INJ SEE COMMENTS; Start 10/27/19 at 17:45; Stop 10/29/19 at 17:44 Oxytocin/Sodium Chloride 500 ml @ 0 mls/hr CONT PRN IV SEE I/O RECORD Last administered on 10/28/19at 07:51; Start 10/28/19 at 06:30 Oxytocin/Sodium Chloride 500 ml @ 0 mls/hr CONT PRN PRN IV Post delivery bleeding; Start 10/27/19 at 17:45 Ibuprofen (Motrin) 800 mg PRN Q6HRS PRN PO PAIN; Start 10/27/19 at 17:45 Dinoprostone (Cervidil) 10 mg 1X ONCE VG Last administered on 10/27/19at 18:3 2; Start 10/27/19 at 18:30; Stop 10/27/19 at 18:31; Status DC Diphenhydramine HCl (Benadryl) 25 mg Q8HRS PRN PO SLEEP Last administered on 10/27/19at 23:40; Start 10/27/19 at 20:15 Ondansetron HCl (Zofran) 4 mg PRN Q6HRS PRN IVP NAUSEA/VOMITING; Start 10/27/19 at 20:15 Acetaminophen (Tylenol) 1,000 mg PRN Q6HRS PRN PO PAIN; Start 10/27/19 at 20:15 Active Scripts Active Cephalexin 500 Mg Capsule 1 Cap PO QID Cephalexin 500 Mg Capsule 1 Cap PO QID Motrin Ib (Ibuprofen) 200 Mg Tablet 600 Mg PO Q6H PRN 3 Days Keflex (Cephalexin) 500 Mg Capsule 1 Cap PO TID 7 Days Zofran (Ondansetron Hcl) 4 Mg Tablet 1 Tab PO Q6HRS Omeprazole 20 Mg Capsule.dr 1 Cap PO DAILY Naprosyn (Naproxen) 500 Mg Tablet 1 Tab PO BID Cyclobenzaprine Hcl 10 Mg Tablet 1 Tab PO QHS PRN Xanax (Alprazolam) 0.25 Mg Tablet 0.25 Mg PO QHS PRN [place] 5-325 Tablet (Acetaminophen/Hydrocodone Bitart) 1 Each Tablet 1 Tab PO PRN Q6HRS PRN Exam FHT: 130's +acels/no decels/mLTV [place]: 8-10 min SVE: 1-2/25/-3 Assessment A/P 24y @ 39.6 by L=11 1.) Indxn s/p cervidil, on Pit 14U/hr 2.) Fetus cat I FHT, vtx 3.) GBS neg 4.) Girl: Leni 5.) Cytology neg/HPV pos pap (repeat in a yr since younger than 25yo) GABBIE PATTERSON MD Oct 28, 2019 11:27
[2019-10-28] MEDS ORDERED: IV RINGERS,LACTATED 1000ML 1,000 ML IV SCH (18:17)
[2019-10-28] MEDS ORDERED: L&D EPIDURAL SYRINGE 50 ML ONE (18:28)
[2019-10-28] MEDS ORDERED: NALOXONE 0.4 MG/ML VIAL. IV PRN (18:30)
[2019-10-28] MEDS ORDERED: ROPIVacaine 0.2% PF 10 ML VIAL. EPID PRN (18:30)
[2019-10-28] MEDS ORDERED: ePHEDrine PF IN SALINE 50 MG/10 ML SYRINGE. IV PRN (18:30)
[2019-10-28] MEDS ORDERED: ROPIVacaine 0.2% PF 10 ML VIAL. ONE (19:00)
[2019-10-28] MEDS ORDERED: OXYTOCIN PREMIX 30 UNIT/500 ML NS BAG. IV ONE (19:00)
[2019-10-28] MEDS: L&D EPIDURAL CASSETTE 100 ML EPID PRN (22:24)
[2019-10-28] MEDS ORDERED: BUPIVACAINE MPF 0.25% 30 ML VIAL. ONE (23:22)
[2019-10-29] MEDS: L&D EPIDURAL CASSETTE 100 ML EPID PRN (01:40)
[2019-10-29] MEDS ORDERED: L&D EPIDURAL SYRINGE 50 ML EPID PRN (02:45)
--- NOTE | 2019-10-29 03:22 | PDOC ---
VAGINAL DELIVERY DATE DATE: 10/29/19 TIME: 03:22 WEIGHT Weight [ ] DIAGNOSIS Patient delivered a viable female infant over intact perineum at 0310. Infant bulb suctioned at perineum. Cord double clamped and cut and handed to waiting RN. Wt 3515. Apgars 8/9. Placenta delivered spontaneously, intact with 3VC. No lacerations observed. Good hemostatis. 20U of pitocin infused with IVFs. EBL 200cc. GABBIE PATTERSON MD Oct 29, 2019 03:22
[2019-10-29] MEDS ORDERED: ZOLPIDEM 5 MG TABLET. PO PRN (03:30)
[2019-10-29] MEDS ORDERED: BENZOCAINE 20% TOPICAL AEROSOL SPRAY 57GM CAN. TP PRN (03:30)
[2019-10-29] MEDS ORDERED: PHENYLEPH/MINERAL OIL/PETROLAT RECTAL OINTMENT TUBE. RC PRN (03:30)
[2019-10-29] MEDS ORDERED: MAGNESIUM HYDROXIDE 2,400 MG/30 ML ORAL.SUSP. PO PRN (03:30)
[2019-10-29] MEDS ORDERED: MAG HYDROX/ALUMINUM HYD/SIMETH 30 ML ORAL.SUSP PO PRN (03:30)
[2019-10-29] MEDS ORDERED: OXYTOCIN 30 UNIT/500 ML PREMIX 500 ML IV PRN (03:30)
[2019-10-29] MEDS ORDERED: HYDROCORTISONE 1% TOPICAL OINTMENT 30GM TUBE. TP PRN (03:30)
[2019-10-29] MEDS ORDERED: oxyCODONE/APAP 5/325 1 TAB TABLET PO PRN ×2 (03:30)
[2019-10-29] MEDS ORDERED: SIMETHICONE 80 MG TAB.CHEW PO PRN (03:30)
[2019-10-29] MEDS ORDERED: MMR per PROTOCOL. MC PRN (03:30)
[2019-10-29] MEDS ORDERED: diphenhydrAMINE HCL 25 MG CAPSULE PO PRN (03:30)
[2019-10-29] MEDS ORDERED: 0.9 % SODIUM CHLORIDE 10 ML DISP.SYRIN. IV PRN (03:30)
[2019-10-29 11:32] VITALS: BP 97/54
[2019-10-29] MEDS: IBUPROFEN 400 MG TABLET. PO PRN ×2 (12:37→19:47)
[2019-10-29] MEDS: DOCUSATE SODIUM 100 MG CAPSULE. PO PRN (12:38)
[2019-10-29 18:44] VITALS: BP 128/88
[2019-10-29 20:00] VITALS: BP 122/83
[2019-10-30 01:24] VITALS: BP 103/65
[2019-10-30] MEDS: IBUPROFEN 400 MG TABLET. PO PRN ×2 (01:55→14:54)
[2019-10-30 06:17] LABS: HEMATOCRIT 29.6 % (36.0-47.0); HEMOGLOBIN 9.8 g/dL (12.0-15.5); RED BLOOD COUNT 3.58 x10^6/uL (3.50-5.40); RED CELL DISTRIBUTION WIDTH 15.2 % (11.5-14.5); WHITE BLOOD COUNT 15.9 x10^3/uL (4.0-11.0)
[2019-10-30 06:30] VITALS: BP 97/56
[2019-10-30] MEDS: ACETAMINOPHEN 325 MG TABLET. PO PRN ×3 (08:19→23:57)
[2019-10-30] MEDS: FERROUS SULFATE 325 MG TABLET. PO SCH ×2 (08:19→18:18)
[2019-10-30] MEDS: DOCUSATE SODIUM 100 MG CAPSULE. PO PRN (08:19)
[2019-10-30 09:57] VITALS: BP 96/57
--- NOTE | 2019-10-30 11:47 | PDOC ---
PROGRESS NOTES Subjective Subjective Pt with good pain control. Tyron PO. Voiding. Minimal lochia Objective Objective Vital Signs Date Time Temp Pulse Resp B/P (MAP) Pulse Ox O2 Delivery O2 Flow Rate FiO2 10/30/19 09:57 98.6 80 20 96/57 (70) 98 Room Air 98.6 Physical Exam Physical Exam FFNT below umb no C/C/E Assessment Assessment A/P 24y PPD #1 s/p 1.) PP - doing well 2.) Hgb 11.4 -> 9.8 3.) Cytology neg/HPV pos pap (repeat in a yr since younger than 25yo) 4.) Cont PP care Comment Review of Relevant I have reviewed the following items denise (where applicable) has been applied. Labs Laboratory Tests Test 10/30/19 06:00 White Blood Count 15.9 x10^3/uL (4.0-11.0) Red Blood Count 3.58 x10^6/uL (3.50-5.40) Hemoglobin 9.8 g/dL (12.0-15.5) Hematocrit 29.6 % (36.0-47.0) Mean Corpuscular Volume 83 fL (79-100) Mean Corpuscular Hemoglobin 27 pg (25-35) Mean Corpuscular Hemoglobin Concent 33 g/dL (31-37) Red Cell Distribution Width 15.2 % (11.5-14.5) Platelet Count 233 x10^3/uL (140-400) Laboratory Tests Test 10/30/19 06:00 White Blood Count 15.9 x10^3/uL (4.0-11.0) Red Blood Count 3.58 x10^6/uL (3.50-5.40) Hemoglobin 9.8 g/dL (12.0-15.5) Hematocrit 29.6 % (36.0-47.0) Mean Corpuscular Volume 83 fL (79-100) Mean Corpuscular Hemoglobin 27 pg (25-35) Mean Corpuscular Hemoglobin Concent 33 g/dL (31-37) Red Cell Distribution Width 15.2 % (11.5-14.5) Platelet Count 233 x10^3/uL (140-400) Microbiology 10/27/19 Urine Culture - Final, Complete 10/27/19 Urine Culture Result 1 (TALIA) - Final, Complete Medications Current Medications Sodium Chloride (Normal Saline Flush) 3 ml QSHIFT PRN IV AFTER MEDS AND BLOOD DRAWS; Start 10/27/19 at 17:45 Ringer's Solution 1,000 ml @ 125 mls/hr Q8H PRN IV PER PROTOCOL Last administered on 10/28/19at 17:55; Start 10/27/19 at 17:45 Fentanyl Citrate (Fentanyl 2ml Vial) 100 mcg PRN Q30MIN PRN IV Severe pain Last administered on 10/28/19at 17:20; Start 10/27/19 at 17:45 Citric Acid/ Sodium Citrate (Bicitra) 30 ml 1X PRN PRN PO DYSPEPSIA; Start 10/27/19 at 17:45; Stop 10/29/19 at 17:44; Status DC Terbutaline Sulfate (Brethine) 0.25 mg 1X PRN PRN SQ SEE COMMENTS; Start 10/27/19 at 17:45; Stop 10/28/19 at 17:44; Status DC Lidocaine HCl (Xylocaine 1% Pf 30ml Vial) 30 ml 1X PRN PRN INJ SEE COMMENTS; Start 10/27/19 at 17:45; Stop 10/29/19 at 17:44; Status DC Oxytocin/Sodium Chloride 500 ml @ 0 mls/hr CONT PRN IV SEE I/O RECORD Last administered on 10/28/19at 07:51; Start 10/28/19 at 06:30 Oxytocin/Sodium Chloride 500 ml @ 0 mls/hr CONT PRN PRN IV Post delivery bleeding; Start 10/27/19 at 17:45 Ibuprofen (Motrin) 800 mg PRN Q6HRS PRN PO PAIN Last administered on 10/29/19at 04:32; Start 10/27/19 at 17:45; Stop 10/29/19 at 07:19; Status DC Dinoprostone (Cervidil) 10 mg 1X ONCE VG Last administered on 10/27/19at 18:32; Start 10/27/19 at 18:30; Stop 10/27/19 at 18:31; Status DC Diphenhydramine HCl (Benadryl) 25 mg Q8HRS PRN PO SLEEP Last administered on 10/27/19at 23:40; Start 10/27/19 at 20:15; Stop 10/29/19 at 05:11; Status DC Ondansetron HCl (Zofran) 4 mg PRN Q6HRS PRN IVP NAUSEA/VOMITING; Start at 20:15 Acetaminophen (Tylenol) 1,000 mg PRN Q6HRS PRN PO PAIN; Start 10/27/19 at 20:15; Stop 10/29/19 at 07:18; Status DC Fentanyl Citrate 100 ml @ 14 mls/hr CONT PRN EPID PAIN Last administered on 10/29/19at 01:40; Start 10/28/19 at 18:30; Stop 10/29/19 at 02:33; Status DC Ringer's Solution 1,000 ml @ 125 mls/hr Q8H IV Last administered on 10/28/19at 22:23; Start 10/28/19 at 18:17 Ephedrine Sulfate (ePHEDrine PF IN SALINE SYRINGE) 10 mg PRN Q2MIN PRN IV IF SBP<90; Start 10/28/19 at 18:30 Naloxone HCl (Narcan) 0.04 mg PRN Q1MIN PRN IV SEE COMMENTS; Start 10/28/19 at 18:30 Ropivacaine (Naropin 0.2%) 20 ml 1X PRN PRN EPID PER ANESTHESIA; Start 10/28/19 at 18:30 Fentanyl Citrate 50 ml @ As Directed STK-MED ONCE .ROUTE ; Start 10/28/19 at 18:28; Stop 10/28/19 at 18:28; Status DC Bupivacaine HCl (Sensorcaine Mpf 0.25%) 30 ml STK-MED ONCE .ROUTE ; Start 10/28/19 at 23:22; Stop 10/28/19 at 23:22; Status DC Fentanyl Citrate 50 ml @ 14 mls/hr CONT PRN EPID PAIN; Start 10/29/19 at 02:45 Sodium Chloride (Normal Saline Flush) 10 ml QSHIFT PRN IV AFTER MEDS AND BLOOD DRAWS; Start 10/29/19 at 03:30 Oxytocin/Sodium Chloride 500 ml @ 62.5 mls/hr CONT PRN IV SEE I/O RECORD; Start 10/29/19 at 03:30; Stop 10/29/19 at 11:29; Status DC Acetaminophen (Tylenol) 650 mg PRN Q6HRS PRN PO MILD PAIN / TEMP Last administered on 10/30/19at 08:19; Start 10/29/19 at 03:30 Ibuprofen (Motrin) 800 mg PRN Q8HRS PRN PO INFLAMMATION/PAIN PREVENTION Last administered on 10/30/19at 01:55; Start 10/29/19 at 03:30 Docusate Sodium (Colace) 100 mg PRN BID PRN PO CONSTIPATION Last administered on 10/30/19at 08:19; Start 10/29/19 at 03:30 Magnesium Hydroxide (Milk Of Magnesia) 2,400 mg PRN DAILY PRN PO CONSTIPATION Last administered on 10/29/19at 20:19; Start 10/29/19 at 03:30 Al Hydroxide/Mg Hydroxide (Mylanta Plus Xs) 30 ml PRN Q4HRS PRN PO HEARTBURN / GAS; Start 10/29/19 at 03:30 Simethicone (Gas-X) 80 mg PRN AFTMEALHC PRN PO GAS / BLOATING; Start 10/29/19 at 03:30 Diphenhydramine HCl (Benadryl) 25 mg PRN Q6HRS PRN PO ITCHING; Start 10/29/19 at 03:30 Benzocaine (Americaine) 1 spray PRN QID PRN TP TOPICAL PAIN; Start 10/29/19 at 03:30 Phenyleph/Shark Oil/Min Oil/Petrol (Preparation H) 1 shakila PRN QID PRN RC RECTAL PAIN Last administered on 10/29/19at 12:37; Start 10/29/19 at 03:30 Hydrocortisone (Cortaid) 1 shakila PRN QID PRN TP PERINEAL PAIN; Start 10/29/19 at 03:30 Ferrous Sulfate (Feosol) 325 mg BIDWMEALS PO Last administered on 10/30/19at 08:19; Start 10/30/19 at 08:00 Zolpidem Tartrate (Ambien) 5 mg PRN QHS PRN PO INSOMNIA, MAY REPEAT X1; Start 10/29/19 at 03:30 Info (Do NOT chart on this placeholder) 1 ea 1X PRN PRN MC SEE COMMENTS; Start 10/29/19 at 03:30 Info (Do NOT chart on this placeholder) 1 ea 1X PRN PRN MC SEE COMMENTS; Start 10/29/19 at 03:30 Oxycodone/ Acetaminophen (Percocet 5/325) 1 tab PRN Q4HRS PRN PO MILD PAIN 1-3; Start 10/29/19 at 03:30 Oxycodone/ Acetaminophen (Percocet 5/325) 2 tab PRN Q4HRS PRN PO MODERATE PAIN, SEVERE PAIN; Start 10/29/19 at 03:30 Ropivacaine (Naropin 0.2%) 10 ml STK-MED ONCE .ROUTE ; Start 10/28/19 at 19:00; Stop 10/29/19 at 08:55; Status DC Oxytocin/Sodium Chloride (Oxytocin Premix Infusion) 30 unit STK-MED ONCE IV ; Start 10/28/19 at 19:00; Stop 10/29/19 at 08:55; Status DC Active Scripts Active Cephalexin 500 Mg Capsule 1 Cap PO QID Cephalexin 500 Mg Capsule 1 Cap PO QID Motrin Ib (Ibuprofen) 200 Mg Tablet 600 Mg PO Q6H PRN 3 Days Keflex (Cephalexin) 500 Mg Capsule 1 Cap PO TID 7 Days Zofran (Ondansetron Hcl) 4 Mg Tablet 1 Tab PO Q6HRS Omeprazole 20 Mg Capsule.dr 1 Cap PO DAILY Naprosyn (Naproxen) 500 Mg Tablet 1 Tab PO BID Cyclobenzaprine Hcl 10 Mg Tablet 1 Tab PO QHS PRN Xanax (Alprazolam) 0.25 Mg Tablet 0.25 Mg PO QHS PRN [place] 5-325 Tablet (Acetaminophen/Hydrocodone Bitart) 1 Each Tablet 1 Tab PO PRN Q6HRS PRN Vitals/I & O Vital Sign - Last 24 Hours 10/29/19 10/29/19 10/30/19 10/30/19 18:44 20:00 01:24 06:30 Temp 98.3 98.8 98.3 98.1 98.3 98.8 98.3 98.1 Pulse 103 105 91 69 Resp 18 20 20 18 B/P (MAP) 128/88 (101) 122/83 (96) 103/65 (78) 97/56 (70) Pulse Ox 100 99 99 97 O2 Delivery Room Air Room Air Room Air Room Air 10/30/19 10/30/19 08:30 09:57 Temp 98.6 98.6 Pulse 80 Resp 20 B/P (MAP) 96/57 (70) Pulse Ox 98 O2 Delivery Room Air Room Air GABBIE PATTERSON MD Oct 30, 2019 11:47
[2019-10-30 18:24] VITALS: BP 118/72
[2019-10-30 20:00] VITALS: BP 115/75
[2019-10-31] VITALS: BP 123/71
[2019-10-31 05:00] VITALS: BP 134/77
[2019-10-31] MEDS: IBUPROFEN 400 MG TABLET. PO PRN (05:09)
[2019-10-31] MEDS ORDERED: DOCU-109 PO (11:48)
[2019-10-31] MEDS ORDERED: IBUP-1060 PO (11:49)
--- NOTE | 2019-10-31 11:53 | PDOC ---
PROGRESS NOTES Subjective Subjective Pt with good pain control. Tyron PO. Voiding. Minimal lochia Objective Objective Vital Signs Date Time Temp Pulse Resp B/P (MAP) Pulse Ox O2 Delivery O2 Flow Rate FiO2 10/31/19 05:00 97.7 98 20 134/77 (96) 97 Room Air 97.7 Physical Exam Physical Exam FFNT below umb no C/C/E Assessment Assessment A/P 24y PPD #2 s/p 1.) PP - doing well 2.) Hgb 11.4 -> 9.8 3.) Cytology neg/HPV pos pap (repeat in a yr since younger than 25yo) 4.) D/c home Comment Review of Relevant I have reviewed the following items denise (where applicable) has been applied. Labs Laboratory Tests Test 10/30/19 06:00 White Blood Count 15.9 x10^3/uL (4.0-11.0) Red Blood Count 3.58 x10^6/uL (3.50-5.40) Hemoglobin 9.8 g/dL (12.0-15.5) Hematocrit 29.6 % (36.0-47.0) Mean Corpuscular Volume 83 fL (79-100) Mean Corpuscular Hemoglobin 27 pg (25-35) Mean Corpuscular Hemoglobin Concent 33 g/dL (31-37) Red Cell Distribution Width 15.2 % (11.5-14.5) Platelet Count 233 x10^3/uL (140-400) Microbiology 10/27/19 Urine Culture - Final, Complete 10/27/19 Urine Culture Result 1 (TALIA) - Final, Complete Medications Current Medications Sodium Chloride (Normal Saline Flush) 3 ml QSHIFT PRN IV AFTER MEDS AND BLOOD DRAWS; Start 10/27/19 at 17:45; Stop 10/30/19 at 15:51; Status DC Ringer's Solution 1,000 ml @ 125 mls/hr Q8H PRN IV PER PROTOCOL Last administered on 10/28/19at 17:55; Start 10/27/19 at 17:45; Stop 10/30/19 at 15:51; Status DC Fentanyl Citrate (Fentanyl 2ml Vial) 100 mcg PRN Q30MIN PRN IV Severe pain Last administered on 10/28/19at 17:20; Start 10/27/19 at 17:45; Stop 10/30/19 at 15:51; Status DC Citric Acid/ Sodium Citrate (Bicitra) 30 ml 1X PRN PRN PO DYSPEPSIA; Start 10/27/19 at 17:45; Stop 10/29/19 at 17:44; Status DC Terbutaline Sulfate (Brethine) 0.25 mg 1X PRN PRN SQ SEE COMMENTS; Start 10/27/19 at 17:45; Stop 10/28/19 at 17:44; Status DC Lidocaine HCl (Xylocaine 1% Pf 30ml Vial) 30 ml 1X PRN PRN INJ SEE COMMENTS; Start 10/27/19 at 17:45; Stop 10/29/19 at 17:44; Status DC Oxytocin/Sodium Chloride 500 ml @ 0 mls/hr CONT PRN IV SEE I/O RECORD Last administered on 10/28/19at 07:51; Start 10/28/19 at 06:30; Stop 10/30/19 at 15:51; Status DC Oxytocin/Sodium Chloride 500 ml @ 0 mls/hr CONT PRN PRN IV Post delivery bleeding; Start 10/27/19 at 17:45 Ibuprofen (Motrin) 800 mg PRN Q6HRS PRN PO PAIN Last administered on 10/29/19at 04:32; Start 10/27/19 at 17:45; Stop 10/29/19 at 07:19; Status DC Dinoprostone (Cervidil) 10 mg 1X ONCE VG Last administered on 10/27/19at 18:32; Start 10/27/19 at 18:30; Stop 10/27/19 at 18:31; Status DC Diphenhydramine HCl (Benadryl) 25 mg Q8HRS PRN PO SLEEP Last administered on 10/27/19at 23:40; Start 10/27/19 at 20:15; Stop 10/29/19 at 05:11; Status DC Ondansetron HCl (Zofran) 4 mg PRN Q6HRS PRN IVP NAUSEA/VOMITING; Start 10/27/19 at 20:15; Stop 10/30/19 at 15:51; Status DC Acetaminophen (Tylenol) 1,000 mg PRN Q6HRS PRN PO PAIN; Start 10/27/19 at 20:15; Stop 10/29/19 at 07:18; Status DC Fentanyl Citrate 100 ml @ 14 mls/hr CONT PRN EPID PAIN Last administered on 10/29/19at 01:40; Start 10/28/19 at 18:30; Stop 10/29/19 at 02:33; Status DC Ringer's Solution 1,000 ml @ 125 mls/hr Q8H IV Last administered on 10/28/19at 22:23; Start 10/28/19 at 18:17; Stop 10/30/19 at 15:51; Status DC Ephedrine Sulfate (ePHEDrine PF IN SALINE SYRINGE) 10 mg PRN Q2MIN PRN IV IF SBP<90; Start 10/28/19 at 18:30; Stop 10/30/19 at 15:51; Status DC Naloxone HCl (Narcan) 0.04 mg PRN Q1MIN PRN IV SEE COMMENTS; Start 10/28/19 at 18:30; Stop 10/30/19 at 15:51; Status DC Ropivacaine (Naropin 0.2%) 20 ml 1X PRN PRN EPID PER ANESTHESIA; Start 10/28/19 at 18:30; Stop 10/30/19 at 15:51; Status DC Fentanyl Citrate 50 ml @ As Directed STK-MED ONCE .ROUTE ; Start 10/28/19 at 18:28; Stop 10/28/19 at 18:28; Status DC Bupivacaine HCl (Sensorcaine Mpf 0.25%) 30 ml STK-MED ONCE .ROUTE ; Start 10/28/19 at 23:22; Stop 10/28/19 at 23:22; Status DC Fentanyl Citrate 50 ml @ 14 mls/hr CONT PRN EPID PAIN; Start 10/29/19 at 02:45; Stop 10/30/19 at 15:51; Status DC Sodium Chloride (Normal Saline Flush) 10 ml QSHIFT PRN IV AFTER MEDS AND BLOOD DRAWS; Start 10/29/19 at 03:30; Stop 10/30/19 at 15:51; Status DC Oxytocin/Sodium Chloride 500 ml @ 62.5 mls/hr CONT PRN IV SEE I/O RECORD; Start 10/29/19 at 03:30; Stop 10/29/19 at 11:29; Status DC Acetaminophen (Tylenol) 650 mg PRN Q6HRS PRN PO MILD PAIN / TEMP Last administered on 10/30/19at 23:57; Start 10/29/19 at 03:30 Ibuprofen (Motrin) 800 mg PRN Q8HRS PRN PO INFLAMMATION/PAIN PREVENTION Last administered on 10/31/19at 05:09; Start 10/29/19 at 03:30 Docusate Sodium (Colace) 100 mg PRN BID PRN PO CONSTIPATION Last administered on 10/30/19at 08:19; Start 10/29/19 at 03:30 Magnesium Hydroxide (Milk Of Magnesia) 2,400 mg PRN DAILY PRN PO CONSTIPATION Last administered on 10/29/19at 20:19; Start 10/29/19 at 03:30 Al Hydroxide/Mg Hydroxide (Mylanta Plus Xs) 30 ml PRN Q4HRS PRN PO HEARTBURN / GAS; Start 10/29/19 at 03:30 Simethicone (Gas-X) 80 mg PRN AFTMEALHC PRN PO GAS / BLOATING; Start 10/29/19 at 03:30 Diphenhydramine HCl (Benadryl) 25 mg PRN Q6HRS PRN PO ITCHING; Start 10/29/19 at 03:30 Benzocaine (Americaine) 1 spray PRN QID PRN TP TOPICAL PAIN; Start 10/29/19 at 03:30 Phenyleph/Shark Oil/Min Oil/Petrol (Preparation H) 1 shakila PRN QID PRN RC RECTAL PAIN Last administered on 10/29/19at 12:37; Start 10/29/19 at 03:30 Hydrocortisone (Cortaid) 1 shakila PRN QID PRN TP PERINEAL PAIN; Start 10/29/19 at 03:30 Ferrous Sulfate (Feosol) 325 mg BIDWMEALS PO Last administered on 10/30/19at 18:18; Start 10/30/19 at 08:00 Zolpidem Tartrate (Ambien) 5 mg PRN QHS PRN PO INSOMNIA, MAY REPEAT X1; Start 10/29/19 at 03:30 Info (Do NOT chart on this placeholder) 1 ea 1X PRN PRN MC SEE COMMENTS; Start 10/29/19 at 03:30; Stop 10/30/19 at 15:51; Status DC Info (Do NOT chart on this placeholder) 1 ea 1X PRN PRN MC SEE COMMENTS; Start 10/29/19 at 03:30; Stop 10/30/19 at 15:51; Status DC Oxycodone/ Acetaminophen (Percocet 5/325) 1 tab PRN Q4HRS PRN PO MILD PAIN 1-3; Start 10/29/19 at 03:30 Oxycodone/ Acetaminophen (Percocet 5/325) 2 tab PRN Q4HRS PRN PO MODERATE PAIN, SEVERE PAIN; Start 10/29/19 at 03:30 Ropivacaine (Naropin 0.2%) 10 ml STK-MED ONCE .ROUTE ; Start 10/28/19 at 19:00; Stop 10/29/19 at 08:55; Status DC Oxytocin/Sodium Chloride (Oxytocin Premix Infusion) 30 unit STK-MED ONCE IV ; Start 10/28/19 at 19:00; Stop 10/29/19 at 08:55; Status DC Active Scripts Active Ibuprofen 800 Mg Tablet 800 Mg PO PRN Q6HRS PRN Colace (Docusate Sodium) 100 Mg Capsule 100 Mg PO BID Cephalexin 500 Mg Capsule 1 Cap PO QID Cephalexin 500 Mg Capsule 1 Cap PO QID Motrin Ib (Ibuprofen) 200 Mg Tablet 600 Mg PO Q6H PRN 3 Days Keflex (Cephalexin) 500 Mg Capsule 1 Cap PO TID 7 Days Zofran (Ondansetron Hcl) 4 Mg Tablet 1 Tab PO Q6HRS Omeprazole 20 Mg Capsule.dr 1 Cap PO DAILY Naprosyn (Naproxen) 500 Mg Tablet 1 Tab PO BID Cyclobenzaprine Hcl 10 Mg Tablet 1 Tab PO QHS PRN Xanax (Alprazolam) 0.25 Mg Tablet 0.25 Mg PO QHS PRN [place] 5-325 Tablet (Acetaminophen/Hydrocodone Bitart) 1 Each Tablet 1 Tab PO PRN Q6HRS PRN Vitals/I & O Vital Sign - Last 24 Hours 10/30/19 10/30/19 10/31/19 10/31/19 18:24 20:00 00:00 05:00 Temp 98.1 98.3 98.9 97.7 98.1 98.3 98.9 97.7 Pulse 82 80 77 98 Resp 18 18 18 20 B/P (MAP) 118/72 (87) 115/75 (88) 123/71 (88) 134/77 (96) Pulse Ox 99 99 98 97 O2 Delivery Room Air Room Air Room Air Room Air GABBIE PATTERSON MD Oct 31, 2019 11:52
[2019-10-31 12:00] VITALS: BP 129/84
--- NOTE | 2019-10-31 19:20 | DS ---
DATE OF DISCHARGE: 10/31/2019 ADMISSION DIAGNOSES: 1. Intrauterine at 39 weeks and 5 days by a last menstrual period equal to an 11-week ultrasound. 2. Induction of labor. 3. GBS negative. 4. 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 DISCHARGE DIAGNOSES: 1. Intrauterine at 39 weeks and 5 days by a last menstrual period equal to an 11-week ultrasound. 2. Induction of labor. 3. GBS negative. 4. 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 PROCEDURE: Spontaneous vaginal delivery. BRIEF HOSPITAL COURSE: The patient is a 24-year-old 1, para 0, who presented to Labor and Delivery at 39 weeks and 5 days by last menstrual period equal to an 11-week ultrasound for induction of labor. The patient was started on Cervidil. Cervidil was removed the following morning and the patient was ultimately started on Pitocin. The patient delivered the following morning by vaginal delivery; see delivery note for full detail. By day #2, the patient was meeting all discharge criteria and desired discharge home. Of note, the patient's hemoglobin on admission was 11.4 with the hemoglobin of 9.8. DISCHARGE INSTRUCTIONS: The patient was told not to lift anything greater than 20 pounds and have pelvic rest for 6 weeks. The patient is to call if she had fever, chills, nausea, vomiting, abdominal pain, or any additional questions or concerns. FOLLOWUP APPOINTMENT: The patient is to follow up on 12/13 at 10:00 a.m. for a appointment with Dr. Patterson. DISCHARGE MEDICATIONS: The patient was given a prescription for Motrin 800 mg 30 pills and Colace 100 mg 30 pills. GABBIE PATTERSON MD DR: [email or web address]/paco JOB#: [id number] / [id number]
== END 2019-10-31 14:40 | disposition home or self-care (01) | DRG 807 ==
LOC: 3 SO LND 17:21 → 3 NORTH 10-29 06:25
PROVIDERS: ADMIT Obstetrics & Gynecology; ATTEND Obstetrics & Gynecology
PROC: 10E0XZZ Delivery of Products of Conception, External Approach (ICD-10-PCS; principal; 2019-10-27)
PROC: 3E033VJ Introduction of Other Hormone into Peripheral Vein, Percutaneous Approach (ICD-10-PCS; 2019-10-27)
DX: O98.32 Other infections with a predominantly sexual mode of transmission complicating childbirth (principal); Z37.0 Single live birth; Z3A.39 39 weeks gestation of pregnancy; A63.0 Anogenital (venereal) warts
CPT/HCPCS: 36415; 81001; 85025; 85027; 86592; 86850; 86900; 86901; 87086; J2590; J2795; J3010; J7120; Q0163; G0378